=== PATIENT | female | born 1995 | race Two or more races ===

== ENCOUNTER 2019-05-26 18:02 | Emergency (ER) | payer MEDICAID ==
[~2019-05-26] VITALS: Ht 160 cm; Wt 66.4 kg
[2019-05-26] MEDS ORDERED: METR500 PO (18:23)
[2019-05-26] MEDS ORDERED: FERR-89 PO (18:23)
[2019-05-26] MEDS ORDERED: FLUORESCEIN SODIUM 1 MG STRIP OU ONE (19:30)
[2019-05-26] MEDS ORDERED: PROPARACAINE HCL 0.5% 15 ML OPHTHALMIC SOLUTION OU ONE (19:30)
[2019-05-26] MEDS ORDERED: FLUORESCEIN SODIUM 1 MG STRIP OS ONE (19:30)
[2019-05-26 19:35] VITALS: BP 129/76
[2019-05-26] MEDS ORDERED: ACETAMINOPHEN 325 MG TABLET PO ONE (20:15)
== END 2019-05-26 20:41 | disposition home or self-care (01) ==
LOC: EMS 18:04
DX: H11.33 Conjunctival hemorrhage, bilateral (principal); R11.2 Nausea with vomiting, unspecified